=== PATIENT | female | born 1975 | race Caucasian/White ===

== ENCOUNTER 2018-11-27 14:31 | Outpatient (CLI) | payer OTHER ==
--- NOTE | 2018-11-27 16:24 | MMO ---
BILATERAL MAMMOGRAMS: DATE: 11/27/18 HISTORY: Screening mammography. COMPARISON: None available. Baseline study. FINDINGS: Heterogeneously dense fibroglandular tissue. No dominant mass or suspicious calcifications. The study was evaluated with the assistance of computer-aided detection. IMPRESSION: BIRADS 1: Negative Suggest routine follow-up. POS: [facility]
== END 2018-11-27 14:32 | disposition home or self-care (01) ==
LOC: SCSMAMMO 14:31
PROVIDERS: ATTEND Family Medicine
DX: Z12.31 Encounter for screening mammogram for malignant neoplasm of breast (principal)
CPT/HCPCS: 77067

== ENCOUNTER 2022-10-17 14:49 | Outpatient (CLI) | payer OTHER | END 2022-10-17 14:50 | disposition home or self-care (01) | LOC: SCSRAD 14:49 | PROVIDERS: ATTEND Physician Assistant | DX: M47.892 Other spondylosis, cervical region (principal); M25.78 Osteophyte, vertebrae | CPT/HCPCS: 72040 ==

== ENCOUNTER 2022-10-31 13:03 | Outpatient (CLI) | payer OTHER | END 2022-10-31 13:04 | disposition home or self-care (01) | LOC: SCSMRI 13:03 | PROVIDERS: ATTEND Physician Assistant | DX: M47.22 Other spondylosis with radiculopathy, cervical region (principal); M50.13 Cervical disc disorder with radiculopathy, cervicothoracic region; M48.02 Spinal stenosis, cervical region | CPT/HCPCS: 72141 ==

== ENCOUNTER 2022-12-18 13:24 | Outpatient (CLI) | payer OTHER | END 2022-12-18 13:25 | disposition home or self-care (01) | LOC: SCSRAD 13:24 | PROVIDERS: ATTEND Orthopaedic Surgery | DX: M54.2 Cervicalgia (principal); M47.812 Spondylosis without myelopathy or radiculopathy, cervical region; Z98.1 Arthrodesis status | CPT/HCPCS: 72040 ==